=== PATIENT | female | born 1940 | race Caucasian/White ===

== ENCOUNTER 2016-12-14 21:42 | Inpatient (IN) | payer OTHER ==
[~2016-12-14] VITALS: Ht 167.6 cm; Wt 56.0 kg
[~2016-12-14 21:42] MED LIST: PAR20T PO; PRED-188 PO
[2016-12-14 22:41] LABS: Basophils # (auto) 0.1 uL; Basophils % (auto) 0.7 % (0.0-2.0); CONDITION Y; DEFINITIVE SEE PRINTOUT; Eosinophils # (auto) 0.1 uL; Eosinophils % (auto) 1.6 % (0.0-7.0); Hematocrit 36.4 % (36.0-46.0); Hemoglobin 11.7 g/dL (12.2-16.2); Lymphocytes # (auto) 0.9 uL; Mean Corpuscular Hemoglobin 33.3 pg (28.0-32.0); Mean Corpuscular Hgb Conc. 32.3 g/dL (32.0-36.0); Mean Corpuscular Volume 103.2 fL (80.0-100.0); Mean Platelet Volume 7.5 fL (7.4-10.4); Monocytes # (auto) 0.6 uL; Monocytes % (auto) 8.7 % (0.0-12.0); Neutrophils # (auto) 5.7 uL; Platelet Count (auto) 293 10^3/uL (140-450); Red Cell Distribution Width 16.3 % (11.6-16.0); White Blood Cell 7.4 10^3/uL (4.4-10.8)
[2016-12-14 22:55] LABS: BUN/Creatinine Ratio 30.8; Calcium 8.2 mg/dL (8.5-10.1)
[2016-12-14 22:58] LABS: Bilirubin, Total 0.2 mg/dL (0.2-1.0)
[2016-12-15] MEDS ORDERED: ONDANSETRON HCL 4 MG/2 ML VIAL IV ONE (01:00)
[2016-12-15] MEDS ORDERED: HYDROmorphone HCL 2 MG/ML VL IV ONE (01:00)
[2016-12-15 01:12] LABS: Temperature: 22.4 C (20.0-25.0)
[2016-12-15 01:57] LABS: INR 0.95 (0.9-1.15); Partial Thromboplastin Time 28.2 sec (22.64-33.71); Prothrombin Time 10.4 sec (9.37-12.3)
[2016-12-15] MEDS ORDERED: ONDANSETRON HCL 4 MG/2 ML VIAL IV PRN (03:15)
[2016-12-15] MEDS ORDERED: NITROGLYCERIN 0.4 MG SL TAB SL PRN (03:15)
[2016-12-15] MEDS ORDERED: MORPHINE SULF INJ 2 MG/ML SYRINGE 1ML IV PRN (03:15)
[2016-12-15] MEDS ORDERED: POTASSIUM CHL 10% (20 MEQ/15ML) ORAL SOLN PO ONE (03:30)
[2016-12-15 03:36] LABS: Urine Bilirubin Negative (Negative); Urine Blood 1+ /uL (Negative); Urine Color Yellow (Yellow); Urine Glucose 2+ mg/dL (Normal); Urine Ketone Negative (Negative); Urine Nitrite Negative (Negative); Urine RBC 2 /hpf (0 - 4); Urine Urobilinogen Normal (Negative)
[2016-12-15] MEDS: SODIUM CHLORIDE 0.9% 1,000 ML IV SCH ×2 (03:41→15:43)
[2016-12-15 05:26] VITALS: BP 125/71
[2016-12-15 05:30] VITALS: BP 125/71
[2016-12-15] MEDS: ALBUTEROL SULF 2.5 MG/0.5ML(0.5%) NEB SOLN NEB SCH ×5 (06:52→22:26)
[2016-12-15] MEDS ORDERED: HYDR-4663 PO (07:04)
[2016-12-15] MEDS ORDERED: LOR05T PO (07:04)
[2016-12-15 09:00] VITALS: BP 114/62
[2016-12-15] MEDS: HYDROmorphone HCL 2 MG/ML VL IV PRN ×3 (09:11→22:29)
[2016-12-15] MEDS ORDERED: methylPREDNISolone SOD SUCC 125 MG/2 ML VL IV SCH (10:00)
[2016-12-15] MEDS: PANTOPRAZOLE 40 MG/10 ML VIAL IV SCH (10:03)
[2016-12-15] MEDS: cefTRIAXone 1GM/50ML D5W 50 ML IV SCH (10:04)
[2016-12-15] MEDS: METOPROLOL TARTRATE 25 MG TAB PO SCH ×3 (10:04→23:03)
[2016-12-15] MEDS: PARoxetine 20 MG TAB PO SCH (10:04)
[2016-12-15] MEDS: ENALAPRIL MALEATE 10 MG TAB PO SCH (10:04)
[2016-12-15 13:00] VITALS: BP 107/55
[2016-12-15] MEDS: ENOXAPARIN SOD 40 MG/0.4 ML SYRINGE SC SCH (14:39)
[2016-12-15 15:55] LABS: INR 0.95 (0.9-1.15); Prothrombin Time 10.3 sec (9.37-12.3)
[2016-12-15 17:00] VITALS: BP 98/59
[2016-12-15 20:18] LABS: Allen Test Yes; Base Excess 9.9 mmol/L (-2.0-2.0); Blood 02Sat 96.6 % (96-100); Blood COHb 1.1 % (0.5-1.5); Blood MetHb 0.3 % (0.0-1.5); HCO3 40.1 mmol/L (22-26.0); HHb 3.4 % (0.0-5.0); MODE NASAL CANNULA; O2Hb 95.2 % (94.0-97.0); PCO2 88.7 mmHg (35.0-45.0); PCO2(T) 88.7 mmHg (35.0-45.0); PO2 99.7 mmHg (80.0-100.0); PO2(T) 99.7 mmHg (80.0-100.0); Room 0276T; Sample Type Arterial; pH 7.273 (7.350-7.450)
[2016-12-15 22:00] VITALS: BP 96/52
[2016-12-15] MEDS: LATANOPROST 0.005 % OPTH(EYE) SOL 2.5ML EACHEYE SCH (22:00)
[2016-12-15] MEDS: ATORVASTATIN 20 MG TAB PO SCH (22:30)
[2016-12-15] MEDS: methylPREDNISolone SOD SUCC 125 MG/2 ML VL IV SCH (22:30)
[2016-12-16] VITALS (7 sets, daily range): BP systolic 117–147; BP diastolic 68–89
[2016-12-16] MEDS: ALBUTEROL SULF 2.5 MG/0.5ML(0.5%) NEB SOLN NEB SCH ×6 (01:41→21:47)
[2016-12-16] MEDS: SODIUM CHLORIDE 0.9% 1,000 ML IV SCH ×2 (05:29→16:03)
[2016-12-16 05:58] LABS: Basophils # (auto) 0 uL; CONDITION Y; DEFINITIVE SEE PRINTOUT; Eosinophils # (auto) 0 uL; Hemoglobin 9.8 g/dL (12.2-16.2); Lymphocytes # (auto) 0.2 uL; Lymphocytes % (auto) 2.7 % (10.0-50.0); Mean Corpuscular Hemoglobin 34.1 pg (28.0-32.0); Mean Corpuscular Hgb Conc. 32.8 g/dL (32.0-36.0); Monocytes # (auto) 0.3 uL; Monocytes % (auto) 4.7 % (0.0-12.0); Neutrophils # (auto) 6.8 uL; Neutrophils % (auto) 92.6 % (37.0-80.0); Platelet Count (auto) 211 10^3/uL (140-450); Red Cell Distribution Width 16.4 % (11.6-16.0); White Blood Cell 7.3 10^3/uL (4.4-10.8)
[2016-12-16 06:28] LABS: Albumin 2.5 g/dL (3.4-5.0); BUN/Creatinine Ratio 39.1; Bilirubin, Total 0.4 mg/dL (0.2-1.0); Calcium 6.9 mg/dL (8.5-10.1); Magnesium 2.1 mg/dL (1.6-2.6); Total Protein 5.1 g/dL (6.4-8.2)
[2016-12-16 06:37] LABS: Potassium 2.9 mmol/L (3.5-5.1)
[2016-12-16] MEDS ORDERED: POTASSIUM CHL 20 Meq TABLET PO ONE (07:00)
[2016-12-16] MEDS: PANTOPRAZOLE 40 MG/10 ML VIAL IV SCH (10:11)
[2016-12-16] MEDS: cefTRIAXone 1GM/50ML D5W 50 ML IV SCH (10:12)
[2016-12-16] MEDS: METOPROLOL TARTRATE 25 MG TAB PO SCH ×2 (10:12→22:15)
[2016-12-16] MEDS: methylPREDNISolone SOD SUCC 125 MG/2 ML VL IV SCH ×2 (10:12→22:13)
[2016-12-16] MEDS: ENOXAPARIN SOD 40 MG/0.4 ML SYRINGE SC SCH (10:13)
[2016-12-16] MEDS: ENALAPRIL MALEATE 10 MG TAB PO SCH (10:13)
[2016-12-16] MEDS: PARoxetine 20 MG TAB PO SCH (10:13)
[2016-12-16] MEDS: HYDROmorphone HCL 2 MG/ML VL IV PRN ×3 (10:14→21:32)
[2016-12-16] MEDS: POTASSIUM CHL 20MEQ/100ML 100 ML IV SCH ×2 (16:02→19:27)
[2016-12-16] MEDS: ATORVASTATIN 20 MG TAB PO SCH (22:13)
[2016-12-16] MEDS: LATANOPROST 0.005 % OPTH(EYE) SOL 2.5ML EACHEYE SCH (22:13)
[2016-12-17] VITALS (7 sets, daily range): BP systolic 137–157; BP diastolic 66–93
[2016-12-17] MEDS: ALBUTEROL SULF 2.5 MG/0.5ML(0.5%) NEB SOLN NEB SCH ×6 (02:38→22:00)
[2016-12-17] MEDS: HYDROmorphone HCL 2 MG/ML VL IV PRN ×2 (04:00→10:45)
[2016-12-17] MEDS: SODIUM CHLORIDE 0.9% 1,000 ML IV SCH ×2 (07:00→17:43)
[2016-12-17 09:27] LABS: Basophils # (auto) 0 uL; CONDITION Y; DEFINITIVE SEE PRINTOUT; Eosinophils # (auto) 0 uL; Hematocrit 38.7 % (36.0-46.0); Hemoglobin 12.8 g/dL (12.2-16.2); Lymphocytes # (auto) 0.2 uL; Lymphocytes % (auto) 2.1 % (10.0-50.0); Mean Corpuscular Hemoglobin 33.8 pg (28.0-32.0); Mean Corpuscular Volume 102.3 fL (80.0-100.0); Mean Platelet Volume 8.7 fL (7.4-10.4); Monocytes # (auto) 0.7 uL; Monocytes % (auto) 6.4 % (0.0-12.0); Neutrophils # (auto) 9.8 uL; Neutrophils % (auto) 91.5 % (37.0-80.0); Platelet Count (auto) 263 10^3/uL (140-450); Red Cell Distribution Width 16.3 % (11.6-16.0); White Blood Cell 10.7 10^3/uL (4.4-10.8)
[2016-12-17 09:32] LABS: BUN/Creatinine Ratio 45.9; Calcium 8.7 mg/dL (8.5-10.1); Magnesium 2.6 mg/dL (1.6-2.6); Phosphorus 2.2 mg/dL (2.5-4.90); Potassium 4.5 mmol/L (3.5-5.1)
[2016-12-17] MEDS: METOPROLOL TARTRATE 25 MG TAB PO SCH ×2 (10:00→21:35)
[2016-12-17] MEDS: PANTOPRAZOLE 40 MG/10 ML VIAL IV SCH (10:43)
[2016-12-17] MEDS: cefTRIAXone 1GM/50ML D5W 50 ML IV SCH (10:43)
[2016-12-17] MEDS: methylPREDNISolone SOD SUCC 125 MG/2 ML VL IV SCH ×2 (10:43→21:36)
[2016-12-17] MEDS: PARoxetine 20 MG TAB PO SCH (10:44)
[2016-12-17] MEDS: ENALAPRIL MALEATE 10 MG TAB PO SCH (10:44)
[2016-12-17] MEDS: ENOXAPARIN SOD 40 MG/0.4 ML SYRINGE SC SCH (10:45)
[2016-12-17] MEDS ORDERED: MORPHINE SULF INJ 2 MG/ML SYRINGE 1ML IV PRN (16:00)
[2016-12-17] MEDS: HYDROcodone-ACET 5/325MG TAB PO PRN ×2 (16:20→21:36)
[2016-12-17] MEDS: ATORVASTATIN 20 MG TAB PO SCH (21:35)
[2016-12-17] MEDS: LATANOPROST 0.005 % OPTH(EYE) SOL 2.5ML EACHEYE SCH (21:36)
[2016-12-18] MEDS: ALBUTEROL SULF 2.5 MG/0.5ML(0.5%) NEB SOLN NEB SCH ×6 (02:00→22:19)
[2016-12-18] MEDS: LORazepam 2MG/ML-1ML VIAL IV PRN ×2 (03:42→15:31)
[2016-12-18 05:00] VITALS: BP 153/76
[2016-12-18 05:28] LABS: Basophils # (auto) 0 uL; CONDITION Y; DEFINITIVE SEE PRINTOUT; Eosinophils # (auto) 0 uL; Hematocrit 39.9 % (36.0-46.0); Hemoglobin 13.1 g/dL (12.2-16.2); Lymphocytes # (auto) 0.1 uL; Lymphocytes % (auto) 1.8 % (10.0-50.0); Mean Corpuscular Hemoglobin 33.4 pg (28.0-32.0); Mean Corpuscular Hgb Conc. 32.7 g/dL (32.0-36.0); Mean Corpuscular Volume 102.1 fL (80.0-100.0); Mean Platelet Volume 8.6 fL (7.4-10.4); Monocytes # (auto) 0.3 uL; Monocytes % (auto) 3.5 % (0.0-12.0); Neutrophils # (auto) 7.5 uL; Neutrophils % (auto) 94.7 % (37.0-80.0); Platelet Count (auto) 282 10^3/uL (140-450); Red Cell Distribution Width 16.5 % (11.6-16.0); White Blood Cell 7.9 10^3/uL (4.4-10.8)
[2016-12-18 05:50] LABS: BUN/Creatinine Ratio 44.6; Calcium 8.2 mg/dL (8.5-10.1); Magnesium 2.7 mg/dL (1.6-2.6); Potassium 4.5 mmol/L (3.5-5.1)
[2016-12-18 08:00] VITALS: BP 182/99
[2016-12-18] MEDS: SODIUM CHLORIDE 0.9% 1,000 ML IV SCH ×2 (08:27→19:15)
[2016-12-18] MEDS: METOPROLOL TARTRATE 25 MG TAB PO SCH ×2 (09:03→22:15)
[2016-12-18] MEDS: ENALAPRIL MALEATE 10 MG TAB PO SCH (09:03)
[2016-12-18] MEDS: methylPREDNISolone SOD SUCC 125 MG/2 ML VL IV SCH ×2 (09:05→22:14)
[2016-12-18] MEDS: PANTOPRAZOLE 40 MG/10 ML VIAL IV SCH (09:05)
[2016-12-18] MEDS: cefTRIAXone 1GM/50ML D5W 50 ML IV SCH (09:06)
[2016-12-18] MEDS: ENOXAPARIN SOD 40 MG/0.4 ML SYRINGE SC SCH (09:14)
[2016-12-18] MEDS: PARoxetine 20 MG TAB PO SCH (09:14)
[2016-12-18] MEDS ORDERED: ceFAZolin 1GM/50ML D5W 50 ML IV ONE (11:58)
[2016-12-18] MEDS ORDERED: MIDAZOLAM HCL 1MG/1ML-2 ML VIAL ONE (12:01)
[2016-12-18] MEDS ORDERED: fentaNYL CITRATE 100 MCG/2 ML VL ONE (12:01)
[2016-12-18] MEDS ORDERED: TETRACAINE 1% INJ 2 ML VIAL IJ ONE (12:07)
[2016-12-18] MEDS ORDERED: PROPOFOL 10 MG/ML 20 ML IV ONE (12:23)
[2016-12-18] MEDS ORDERED: DEXAMETHASONE SOD PHOS 10MG/1ML VIAL INJ IV ONE (15:04)
[2016-12-18] MEDS ORDERED: PHENYLEPHRINE INJ 10 MG/ML 5ML VIAL IV ONE (15:08)
[2016-12-18 16:11] VITALS: BP 129/63
[2016-12-18 17:00] VITALS: BP 127/71
[2016-12-18] MEDS: HYDROcodone-ACET 5/325MG TAB PO PRN (19:16)
[2016-12-18 20:00] VITALS: BP 112/69
[2016-12-18] MEDS: ceFAZolin 1GM/50ML D5W 50 ML IV SCH (20:51)
[2016-12-18 22:00] VITALS: BP 112/69
[2016-12-18] MEDS: LATANOPROST 0.005 % OPTH(EYE) SOL 2.5ML EACHEYE SCH (22:14)
[2016-12-18] MEDS: ATORVASTATIN 20 MG TAB PO SCH (22:14)
[2016-12-19] VITALS (7 sets, daily range): BP systolic 107–138; BP diastolic 61–85
[2016-12-19] MEDS: ALBUTEROL SULF 2.5 MG/0.5ML(0.5%) NEB SOLN NEB SCH ×7 (02:00→22:00)
[2016-12-19] MEDS: ceFAZolin 1GM/50ML D5W 50 ML IV SCH ×3 (04:12→20:40)
[2016-12-19 05:37] LABS: Basophils # (auto) 0 uL; CONDITION Y; DEFINITIVE SEE PRINTOUT; Eosinophils # (auto) 0 uL; Hematocrit 35.9 % (36.0-46.0); Hemoglobin 11.9 g/dL (12.2-16.2); Lymphocytes # (auto) 0.2 uL; Lymphocytes % (auto) 2.3 % (10.0-50.0); Mean Corpuscular Hemoglobin 33.9 pg (28.0-32.0); Mean Corpuscular Hgb Conc. 33.1 g/dL (32.0-36.0); Mean Corpuscular Volume 102.3 fL (80.0-100.0); Mean Platelet Volume 8.2 fL (7.4-10.4); Monocytes # (auto) 0.7 uL; Monocytes % (auto) 7.7 % (0.0-12.0); Neutrophils # (auto) 8.6 uL; Platelet Count (auto) 273 10^3/uL (140-450); Red Cell Distribution Width 16.4 % (11.6-16.0); White Blood Cell 9.6 10^3/uL (4.4-10.8)
[2016-12-19 05:56] LABS: BUN/Creatinine Ratio 42.9; Calcium 7.8 mg/dL (8.5-10.1); Magnesium 2.6 mg/dL (1.6-2.6); Potassium 4.2 mmol/L (3.5-5.1)
[2016-12-19] MEDS: HYDROcodone-ACET 5/325MG TAB PO PRN ×2 (09:17→20:41)
[2016-12-19] MEDS: PANTOPRAZOLE 40 MG/10 ML VIAL IV SCH (11:10)
[2016-12-19] MEDS: LACTULOSE 20Gm/30ML SOLN PO PRN (11:10)
[2016-12-19] MEDS: methylPREDNISolone SOD SUCC 125 MG/2 ML VL IV SCH ×2 (11:10→22:36)
[2016-12-19] MEDS: ENOXAPARIN SOD 40 MG/0.4 ML SYRINGE SC SCH (11:11)
[2016-12-19] MEDS: METOPROLOL TARTRATE 25 MG TAB PO SCH ×2 (11:12→22:36)
[2016-12-19] MEDS: PARoxetine 20 MG TAB PO SCH (11:12)
[2016-12-19] MEDS: ENALAPRIL MALEATE 10 MG TAB PO SCH (11:13)
[2016-12-19 11:19] LABS: Hematocrit 37.1 % (36.0-46.0); Hemoglobin 12.3 g/dL (12.2-16.2)
[2016-12-19] MEDS: SODIUM CHLORIDE 0.9% 1,000 ML IV SCH ×2 (13:32→20:41)
[2016-12-19 17:22] LABS: Partial Thromboplastin Time 32.6 sec (22.64-33.71); Prothrombin Time 10.9 sec (9.37-12.3)
[2016-12-19] MEDS: LATANOPROST 0.005 % OPTH(EYE) SOL 2.5ML EACHEYE SCH (22:35)
[2016-12-19] MEDS: ATORVASTATIN 20 MG TAB PO SCH (22:35)
[2016-12-19] MEDS: LORazepam 2MG/ML-1ML VIAL IV PRN (23:09)
[2016-12-20] VITALS (7 sets, daily range): BP systolic 124–159; BP diastolic 64–93
[2016-12-20] MEDS: HYDROcodone-ACET 5/325MG TAB PO PRN ×4 (00:23→20:25)
[2016-12-20] MEDS: ceFAZolin 1GM/50ML D5W 50 ML IV SCH ×2 (04:46→11:44)
[2016-12-20] MEDS: LACTULOSE 20Gm/30ML SOLN PO PRN (04:47)
[2016-12-20] MEDS: ALBUTEROL SULF 2.5 MG/0.5ML(0.5%) NEB SOLN NEB SCH ×6 (06:31→22:21)
[2016-12-20] MEDS: SODIUM CHLORIDE 0.9% 1,000 ML IV SCH ×2 (07:49→21:57)
[2016-12-20] MEDS ORDERED: LIDOCAINE 2%HCL (LOCAL ANESTH.) INJ 20ML MDV ONE (08:18)
[2016-12-20 08:19] LABS: Hematocrit 39.8 % (36.0-46.0); Hemoglobin 12.7 g/dL (12.2-16.2)
[2016-12-20] MEDS: PANTOPRAZOLE 40 MG/10 ML VIAL IV SCH (09:34)
[2016-12-20] MEDS: METOPROLOL TARTRATE 25 MG TAB PO SCH ×2 (09:34→21:58)
[2016-12-20] MEDS: ENALAPRIL MALEATE 10 MG TAB PO SCH (09:34)
[2016-12-20] MEDS: methylPREDNISolone SOD SUCC 125 MG/2 ML VL IV SCH (09:34)
[2016-12-20] MEDS: PARoxetine 20 MG TAB PO SCH (09:35)
[2016-12-20] MEDS: ENOXAPARIN SOD 40 MG/0.4 ML SYRINGE SC SCH (09:35)
[2016-12-20] MEDS: BOOST PLUS 8 ounce PO SCH (18:27)
[2016-12-20] MEDS: PRO-STAT 64 30ML PO SCH (18:27)
[2016-12-20] MEDS: methylPREDNISolone SOD SUCC 40 MG/ML VL IV SCH (21:57)
[2016-12-20] MEDS: ATORVASTATIN 20 MG TAB PO SCH (21:58)
[2016-12-20] MEDS: DOCUSATE SOD 100 MG CAP PO SCH (21:58)
[2016-12-20] MEDS ORDERED: SENNA 8.6 MG TAB PO SCH (22:00)
[2016-12-20] MEDS: LATANOPROST 0.005 % OPTH(EYE) SOL 2.5ML EACHEYE SCH (22:42)
[2016-12-21] MEDS: LORazepam 2MG/ML-1ML VIAL IV PRN
[2016-12-21] MEDS: LACTULOSE 20Gm/30ML SOLN PO PRN
[2016-12-21] MEDS: HYDROcodone-ACET 5/325MG TAB PO PRN ×3 (05:21→17:06)
[2016-12-21 05:30] VITALS: BP 150/85
[2016-12-21 06:16] LABS: Basophils # (auto) 0 uL; CONDITION Y; DEFINITIVE SEE PRINTOUT; Eosinophils # (auto) 0 uL; Hematocrit 38.3 % (36.0-46.0); Hemoglobin 12.5 g/dL (12.2-16.2); Lymphocytes # (auto) 0.2 uL; Lymphocytes % (auto) 1.6 % (10.0-50.0); Mean Corpuscular Hgb Conc. 32.6 g/dL (32.0-36.0); Mean Corpuscular Volume 104.5 fL (80.0-100.0); Mean Platelet Volume 8.3 fL (7.4-10.4); Monocytes # (auto) 0.5 uL; Monocytes % (auto) 4.9 % (0.0-12.0); Neutrophils # (auto) 9.5 uL; Neutrophils % (auto) 93.5 % (37.0-80.0); Platelet Count (auto) 291 10^3/uL (140-450); Red Cell Distribution Width 16.9 % (11.6-16.0); White Blood Cell 10.1 10^3/uL (4.4-10.8)
[2016-12-21 06:37] LABS: Magnesium 2.8 mg/dL (1.6-2.6); Phosphorus 3.4 mg/dL (2.5-4.90); Potassium 4.2 mmol/L (3.5-5.1)
[2016-12-21] MEDS: ALBUTEROL SULF 2.5 MG/0.5ML(0.5%) NEB SOLN NEB SCH ×3 (06:40→13:50)
[2016-12-21 08:00] VITALS: BP 144/71
[2016-12-21] MEDS: BOOST PLUS 8 ounce PO SCH ×3 (08:00→18:00)
[2016-12-21] MEDS: PRO-STAT 64 30ML PO SCH ×2 (08:00→18:00)
[2016-12-21 08:14] VITALS: BP 150/85
[2016-12-21] MEDS ORDERED: fentaNYL CITRATE 100 MCG/2 ML VL ONE (08:59)
[2016-12-21] MEDS ORDERED: NALOXONE HCL 1MG/ML 2ML SYRINGE ONE (08:59)
[2016-12-21] MEDS ORDERED: FLUMAZENIL 0.1 MG/ML INJ 10ML MDV IV ONE (08:59)
[2016-12-21] MEDS ORDERED: MIDAZOLAM HCL 1MG/1ML-2 ML VIAL ONE ×2 (08:59→11:28)
[2016-12-21 09:00] VITALS: BP 144/71
[2016-12-21] MEDS ORDERED: LIDOCAINE 2%HCL (LOCAL ANESTH.) INJ 20ML MDV ONE (09:00)
[2016-12-21] MEDS: SODIUM CHLORIDE 0.9% 1,000 ML IV SCH (09:13)
[2016-12-21] MEDS: methylPREDNISolone SOD SUCC 40 MG/ML VL IV SCH (11:23)
[2016-12-21] MEDS: PANTOPRAZOLE 40 MG/10 ML VIAL IV SCH (11:23)
[2016-12-21] MEDS: DOCUSATE SOD 100 MG CAP PO SCH (11:23)
[2016-12-21] MEDS: PARoxetine 20 MG TAB PO SCH (11:24)
[2016-12-21] MEDS: METOPROLOL TARTRATE 25 MG TAB PO SCH (11:24)
[2016-12-21] MEDS: ENOXAPARIN SOD 40 MG/0.4 ML SYRINGE SC SCH (11:25)
[2016-12-21] MEDS: ENALAPRIL MALEATE 10 MG TAB PO SCH (11:25)
[2016-12-21] MEDS ORDERED: HYDROmorphone HCL 2 MG/ML VL ONE (11:28)
[2016-12-21 12:55] VITALS: BP 141/74
[2016-12-21 17:00] VITALS: BP 142/77
== END 2016-12-21 18:44 | DRG 981 ==
LOC: EDBD 21:42 → ER 21:48 → TELE 21:49 → TELE-WESTW 12-15 04:15
PROVIDERS: ADMIT Family Medicine; ATTEND Internal Medicine
PROC: 0MBM0ZZ Excision of Left Hip Bursa and Ligament, Open Approach (ICD-10-PCS; 2016-12-18)
PROC: 0SRS0JZ Replacement of Left Hip Joint, Femoral Surface with Synthetic Substitute, Open Approach (ICD-10-PCS; principal; 2016-12-18 12:04)
PROC: 0BBC3ZX Excision of Right Upper Lung Lobe, Percutaneous Approach, Diagnostic (ICD-10-PCS; 2016-12-21)
DX: J96.20 Acute and chronic respiratory failure, unspecified whether with hypoxia or hypercapnia (principal); S72.002A Fracture of unspecified part of neck of left femur, initial encounter for closed fracture; J90 Pleural effusion, not elsewhere classified; R64 Cachexia; S72.012A Unspecified intracapsular fracture of left femur, initial encounter for closed fracture; J44.1 Chronic obstructive pulmonary disease with (acute) exacerbation; Z68.1 Body mass index [BMI] 19.9 or less, adult; E88.09 Other disorders of plasma-protein metabolism, not elsewhere classified; G30.9 Alzheimer's disease, unspecified; F02.80 Dementia in other diseases classified elsewhere, unspecified severity, without behavioral disturbance, psychotic disturbance, mood disturbance, and anxiety; E87.6 Hypokalemia; F32.9 Major depressive disorder, single episode, unspecified; F41.9 Anxiety disorder, unspecified; I10 Essential (primary) hypertension; I49.9 Cardiac arrhythmia, unspecified; Z96.641 Presence of right artificial hip joint; W01.0XXA Fall on same level from slipping, tripping and stumbling without subsequent striking against object, initial encounter; M54.9 Dorsalgia, unspecified; G89.29 Other chronic pain; K57.30 Diverticulosis of large intestine without perforation or abscess without bleeding; I34.1 Nonrheumatic mitral (valve) prolapse; R91.8 Other nonspecific abnormal finding of lung field; F17.210 Nicotine dependence, cigarettes, uncomplicated; M70.62 Trochanteric bursitis, left hip; Z80.9 Family history of malignant neoplasm, unspecified; Z87.81 Personal history of (healed) traumatic fracture; Z99.81 Dependence on supplemental oxygen; Y93.89 Activity, other specified; Y92.092 Bedroom in other non-institutional residence as the place of occurrence of the external cause; Y99.8 Other external cause status; Z90.49 Acquired absence of other specified parts of digestive tract; Z83.2 Family history of diseases of the blood and blood-forming organs and certain disorders involving the immune mechanism
CPT/HCPCS: 10022; 36415; 36600; 71010; 71250; 73502; 73700; 74176; 77012; 80048; 80053; 80061; 81001; 82805; 83735; 83880; 84100; 84484; 85014; 85018; 85025; 85610; 85730; 86850; 86870; 86900; 86901; 88311; 93005; 94010; 94640; 96374; 96375; 97163; C9113; J0690; J0696; J1100; J2250; J2370; J2405; J2704; J3480